=== PATIENT | male | born 1975 | race Two or more races ===

== ENCOUNTER 2024-12-30 07:31 | Day surgery (SDC) | payer OTHER ==
[2024-12-30] MEDS ORDERED: ONDANSETRON HCL 2 MG/ML VIAL IV ONE (14:30)
[2024-12-30] MEDS ORDERED: fentaNYL CITRATE 50 MCG/ML AMPUL IV PUSH ONE (14:30)
[2024-12-30] MEDS ORDERED: DIPHENHYDRAMINE HCL 50 MG/ML VIAL 1ML IV ONE (14:30)
[2024-12-30] MEDS ORDERED: MIDAZOLAM HCL 2 MG/2 ML VIAL IV ONE (14:30)
== END 2024-12-30 15:30 | disposition home or self-care (01) ==
LOC: CIR.AMB 07:31
PROVIDERS: ATTEND Colon & Rectal Surgery
DX: D12.2 Benign neoplasm of ascending colon (principal); D12.0 Benign neoplasm of cecum; K63.5 Polyp of colon; K62.1 Rectal polyp; K57.30 Diverticulosis of large intestine without perforation or abscess without bleeding

== ENCOUNTER 2025-01-01 11:33 | Emergency (ER) | payer OTHER ==
[~2025-01-01] VITALS: Ht 172.7 cm; Wt 110.2 kg
[2025-01-01] MEDS ORDERED: METFORMIN HCL500 M3 (11:56)
[2025-01-01] MEDS ORDERED: COZAAR100 MG PO (11:56)
[2025-01-01] MEDS ORDERED: HYDRODIURIL12.5 MG PO (11:56)
[2025-01-01] MEDS ORDERED: ATORVASTATIN CA10 MG PO (11:56)
[2025-01-01] MEDS ORDERED: 0.9 % SODIUM CHLORIDE 1,000 ML IV STA (12:02)
[2025-01-01 12:44] LABS: BASO % 0.6 % (0.1-1.2); EOS # 0.08 (0.04-0.54); EOS % 1.1 % (0.7-7.0); LYMPH # 1.42 (1.18-3.74); LYMPH % 20.3 % (19.3-53.1); MEAN PLATELET VOLUME 8.70 fl (9.4-12.4); MONO # 0.48 (0.24-0.82); MONO % 6.9 % (4.7-12.5); NEUT # 4.92 (1.56-6.13); NEUT % 70.5 % (34.0-71.1); RED CELL DISTRIBUTION WIDTH 12.3 % (11.6-14.4)
[2025-01-01 13:08] LABS: BUN CREA RATIO 12.0 (7.0-25.0); CREATININE SERUM 1.06 mg/dL (0.70-1.30); GFR 74.57; GLUCOSE FASTING 91.0 mg/dL (65-100); INR 1.05; OSMOLALITY SERUM 281.0 MOSM/KG (275-295)
[2025-01-01 14:43] LABS: URINE APPEARANCE Clear; URINE BILIRRUBIN Negative (NEGATIVE); URINE BLOOD Negative; URINE COLOR Yellow; URINE GLUCOSE Negative (NEGATIVE); URINE KETONE Negative (NEGATIVE); URINE LEUKOCYTE Negative; URINE NITRATE Negative; URINE PROTEIN Negative (NEGATIVE); URINE UROBILINOGEN 0.2 E.U./dl
[2025-01-01 15:02] LABS: URINE BACTERIA 0 uL (0.0-1933); URINE CAST 0.00 uL (0.0-1.40); URINE EPITHELIAL CELLS 0.0 uL (0.0-38.8); URINE RBC 0.7 uL (0.0-20.8); URINE WBC 0.5 uL (0.0-23.2)
== END 2025-01-01 20:18 | disposition home or self-care (01) ==
LOC: ER 11:33
PROVIDERS: Emergency Medicine
DX: K62.5 Hemorrhage of anus and rectum (principal); K62.89 Other specified diseases of anus and rectum; Z98.890 Other specified postprocedural states; I10 Essential (primary) hypertension